=== PATIENT | male | born 1975 | race Caucasian/White ===

== ENCOUNTER 2020-10-06 13:12 | Emergency (ER) | payer OTHER | END 2020-10-06 15:28 | disposition home or self-care (01) | LOC: ER1 13:12 | DX: I82.C12 Acute embolism and thrombosis of left internal jugular vein (principal); E11.9 Type 2 diabetes mellitus without complications; Z86.711 Personal history of pulmonary embolism; Z79.4 Long term (current) use of insulin; Z79.899 Other long term (current) drug therapy | CPT/HCPCS: 99283 ==

== ENCOUNTER → 2020-11-12 | Outpatient (CLI) | payer OTHER | LOC: US 11-07 15:00 | DX: I82.C12 Acute embolism and thrombosis of left internal jugular vein (principal) | CPT/HCPCS: 93971 ==

== ENCOUNTER → 2021-06-17 | Outpatient (CLI) | payer OTHER ==
[~2021-06-17] MED LIST: ATENOLOL50 MG PO; ATORVASTATIN CA20 MG PO; CIALIS20 MG PO; CIALIS5 MG PO; ENDOCET 10-3251 EACH PO; FINASTERIDE5 MG PO; FLOMAX 0.4 MG0.4 MG PO; LANTUS SOL100 UNIT/1 SQ; OXYCODONE-ACET1 EACH PO; SILDENAFIL20 MG PO; TESTOSTERO200 MG/11 IM; VITAMIN D21250 MCG PO; XARELTO20 MG PO
[2021-06-17 13:19] LABS: BUN/CREATININE RATIO 15 (0-10)
== END ==
LOC: OPSV2 11:00
PROVIDERS: Orthopaedic Surgery
DX: Z01.818 Encounter for other preprocedural examination (principal); M62.121 Other rupture of muscle (nontraumatic), right upper arm; I10 Essential (primary) hypertension; E11.9 Type 2 diabetes mellitus without complications
CPT/HCPCS: 36415; 80048; 93005

== ENCOUNTER → 2021-06-18 | Day surgery (SDC) | payer OTHER ==
[~2021-06-18] VITALS: Ht 198.1 cm; Wt 157.4 kg
== END | disposition home or self-care (01) ==
LOC: OR 10:40
DX: S46.211A Strain of muscle, fascia and tendon of other parts of biceps, right arm, initial encounter (principal); X58.XXXA Exposure to other specified factors, initial encounter; I10 Essential (primary) hypertension; J45.909 Unspecified asthma, uncomplicated; G47.30 Sleep apnea, unspecified; E78.5 Hyperlipidemia, unspecified; E07.9 Disorder of thyroid, unspecified; F41.9 Anxiety disorder, unspecified; E10.9 Type 1 diabetes mellitus without complications; F17.210 Nicotine dependence, cigarettes, uncomplicated; Z86.711 Personal history of pulmonary embolism; Z79.01 Long term (current) use of anticoagulants; Z99.89 Dependence on other enabling machines and devices; Z79.899 Other long term (current) drug therapy
CPT/HCPCS: 73090; 76000; 82962; C1713; J0690; J1100; J1885; J2001; J2250; J2405; J2704; J2765; J2795; J3010; J7120

== ENCOUNTER 2021-12-17 05:31 | Inpatient (IN) | payer OTHER ==
[~2021-12-17] VITALS: Ht 198.1 cm; Wt 146.1 kg
[2021-12-17] MEDS ORDERED: PHENERGAN 25 MG25 M1 PO (11:28)
[2021-12-17] MEDS ORDERED: TRAMADOL HCL50 MG PO (11:28)
[2021-12-17] MEDS ORDERED: ROBAXIN 750 MG750 MG PO (11:28)
[2021-12-17] MEDS ORDERED: IBU-200200 MG PO (11:29)
[2021-12-17] MEDS ORDERED: TYLENOL325 MG PO (11:29)
[2021-12-17] MEDS ORDERED: LEVEMIR FL100 UNIT/1 SQ (11:29)
[2021-12-17 11:48] LABS: BUN/CREATININE RATIO 27 (0-10)
--- NOTE | 2021-12-17 14:42 | NUR ---
1200- SPOKE WITH ESMER ANDREA ABOUT PATIENT NEEDING AN ORDER FOR CPAP. PT UNSURE OF CPAP SETTING. ESMER STATED TO ORDER RESP. AUTO PAP.
[2021-12-18 06:34] LABS: HEMOGLOBIN 16.5 gm/dl (14.0-17.5); RED BLOOD COUNT 4.89 M/UL (4.20-5.50); WHITE BLOOD COUNT 5.2 K/UL (4.5-11.0)
[2021-12-18 07:08] LABS: BUN/CREATININE RATIO 21 (0-10)
[2021-12-19 04:45] LABS: HEMOGLOBIN 14.7 gm/dl (14.0-17.5)
[2021-12-19 04:59] LABS: RED BLOOD COUNT 4.39 M/UL (4.20-5.50)
[2021-12-19 05:01] LABS: BUN/CREATININE RATIO 17 (0-10)
[2021-12-20 06:03] LABS: HEMOGLOBIN 14.1 gm/dl (14.0-17.5); RED BLOOD COUNT 4.24 M/UL (4.20-5.50)
[2021-12-20 06:30] LABS: BUN/CREATININE RATIO 28 (0-10)
[2021-12-21 04:16] LABS: HEMOGLOBIN 14.7 gm/dl (14.0-17.5); RED BLOOD COUNT 4.42 M/UL (4.20-5.50); WHITE BLOOD COUNT 3.4 K/UL (4.5-11.0)
[2021-12-21 04:32] LABS: BUN/CREATININE RATIO 23 (0-10)
[2021-12-21] MEDS ORDERED: ZYVOX600 MG PO (12:31)
== END 2021-12-21 19:13 | disposition home or self-care (01) | DRG 256 ==
LOC: MED SURG 4 05:31
PROVIDERS: Physician Assistant; Physician Assistant Medical; Podiatrist Foot & Ankle Surgery; ADMIT Internal Medicine
PROC: 0Y6T0Z0 Detachment at Right 3rd Toe, Complete, Open Approach (ICD-10-PCS; principal; 2021-12-18 09:00)
DX: E11.52 Type 2 diabetes mellitus with diabetic peripheral angiopathy with gangrene (principal); I96 Gangrene, not elsewhere classified; I48.20 Chronic atrial fibrillation, unspecified; M86.671 Other chronic osteomyelitis, right ankle and foot; L03.115 Cellulitis of right lower limb; I10 Essential (primary) hypertension; E78.5 Hyperlipidemia, unspecified; N40.0 Benign prostatic hyperplasia without lower urinary tract symptoms; F41.9 Anxiety disorder, unspecified; M54.9 Dorsalgia, unspecified; E11.621 Type 2 diabetes mellitus with foot ulcer; G47.33 Obstructive sleep apnea (adult) (pediatric); E11.40 Type 2 diabetes mellitus with diabetic neuropathy, unspecified; E11.51 Type 2 diabetes mellitus with diabetic peripheral angiopathy without gangrene; K21.9 Gastro-esophageal reflux disease without esophagitis; F17.220 Nicotine dependence, chewing tobacco, uncomplicated; B95.62 Methicillin resistant Staphylococcus aureus infection as the cause of diseases classified elsewhere; I73.9 Peripheral vascular disease, unspecified; G89.29 Other chronic pain; F32.A Depression, unspecified; E66.9 Obesity, unspecified; J45.909 Unspecified asthma, uncomplicated; Z20.822 Contact with and (suspected) exposure to COVID-19; Z86.711 Personal history of pulmonary embolism; Z79.899 Other long term (current) drug therapy; Z90.49 Acquired absence of other specified parts of digestive tract; Z89.431 Acquired absence of right foot; Z98.49 Cataract extraction status, unspecified eye; Z79.01 Long term (current) use of anticoagulants; Z83.3 Family history of diabetes mellitus; Z83.6 Family history of other diseases of the respiratory system; Z82.49 Family history of ischemic heart disease and other diseases of the circulatory system; Z68.29 Body mass index [BMI] 29.0-29.9, adult
CPT/HCPCS: 36415; 73630; 80048; 80053; 80202; 82962; 83735; 85025; 85027; 86140; 87070; 87077; 87186; 87205; 94660; J1100; J1335; J2001; J2250; J2370; J2405; J2543; J2704; J2795; J3010; J3370; J7030; J7070; J7120; Q9967